=== PATIENT | male | born 1980 | race Caucasian/White ===

== ENCOUNTER 2016-09-13 22:30 | Emergency (ER) | payer OTHER ==
[~2016-09-13] VITALS: Ht 198.1 cm; Wt 118.2 kg
[2016-09-13 22:29] VITALS: BP 130/62; PULSE 104; RESP 16; O2SAT 96
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
== END 2016-09-13 23:32 ==
LOC: SED 22:30
DX: F10.120 Alcohol abuse with intoxication, uncomplicated (principal); S61.215A Laceration without foreign body of left ring finger without damage to nail, initial encounter; S00.31XA Abrasion of nose, initial encounter; S00.81XA Abrasion of other part of head, initial encounter; V49.40XA Driver injured in collision with unspecified motor vehicles in traffic accident, initial encounter; Y92.410 Unspecified street and highway as the place of occurrence of the external cause; Y93.89 Activity, other specified; Y99.8 Other external cause status; Z87.891 Personal history of nicotine dependence; Z88.0 Allergy status to penicillin